=== PATIENT | male | born 1980 | race Caucasian/White ===

== ENCOUNTER 2017-03-19 19:55 | Emergency (ER) | payer OTHER | END 2017-03-20 00:35 | disposition home or self-care (01) | LOC: ER1 19:55 | DX: S06.0X9A Concussion with loss of consciousness of unspecified duration, initial encounter (principal); S01.81XA Laceration without foreign body of other part of head, initial encounter; F17.200 Nicotine dependence, unspecified, uncomplicated; Z88.0 Allergy status to penicillin; Z88.1 Allergy status to other antibiotic agents; Z23 Encounter for immunization; V86.59XA Driver of other special all-terrain or other off-road motor vehicle injured in nontraffic accident, initial encounter; Y93.89 Activity, other specified | CPT/HCPCS: 70450; 72125; 93005; 99284 ==

== ENCOUNTER 2021-01-07 06:21 | Emergency (ER) | payer OTHER ==
[~2021-01-07 06:21] MED LIST: FLEXERIL 10 MG10 MG PO; IBUPROFEN800 MG PO; NAPROSYN500 MG PO; PROTONIX40 MG PO
[2021-01-07 06:45] LABS: HEMOGLOBIN 18.4 gm/dl (14.0-17.5); RED BLOOD COUNT 5.24 M/UL (4.20-5.50); WHITE BLOOD COUNT 8.5 K/UL (4.5-11.0)
[2021-01-07 07:09] LABS: BUN/CREATININE RATIO 12 (0-10)
== END 2021-01-07 11:00 | disposition home or self-care (01) ==
LOC: ER1 06:21
PROVIDERS: Emergency Medicine; Nurse Practitioner
DX: R07.9 Chest pain, unspecified (principal); E78.5 Hyperlipidemia, unspecified; J44.9 Chronic obstructive pulmonary disease, unspecified; Z88.1 Allergy status to other antibiotic agents; Z88.0 Allergy status to penicillin; Z79.01 Long term (current) use of anticoagulants; Z79.899 Other long term (current) drug therapy; F17.210 Nicotine dependence, cigarettes, uncomplicated
CPT/HCPCS: 36415; 71045; 80053; 80307; 81001; 82550; 82553; 83690; 83735; 83874; 83880; 84100; 84484; 85025; 93005; 99285